=== PATIENT | male | born 1975 | race Caucasian/White ===

== ENCOUNTER 2021-10-22 16:42 | Emergency (ER) | payer OTHER ==
[~2021-10-22] VITALS: Ht 172.7 cm; Wt 63.5 kg
[2021-10-22 17:01] VITALS: BP 132/82
[2021-10-23] MEDS ORDERED: IBUP800T27 PO (09:35)
== END 2021-10-23 00:15 | disposition left against medical advice (07) ==
LOC: ER 16:42
DX: M79.671 Pain in right foot (principal); Z53.21 Procedure and treatment not carried out due to patient leaving prior to being seen by health care provider
CPT/HCPCS: 73630

== ENCOUNTER 2021-10-23 08:47 | Emergency (ER) | payer OTHER ==
[~2021-10-23] VITALS: Ht 172.7 cm; Wt 63.5 kg
[2021-10-23 09:22] VITALS: BP 141/91
[2021-10-23] MEDS ORDERED: IBUP800T27 PO (09:35)
== END 2021-10-23 09:43 | disposition home or self-care (01) ==
LOC: ER 08:47
DX: S92.334D Nondisplaced fracture of third metatarsal bone, right foot, subsequent encounter for fracture with routine healing (principal); Z88.6 Allergy status to analgesic agent; X58.XXXD Exposure to other specified factors, subsequent encounter